=== PATIENT | female | born 1970 | race Caucasian/White ===

== ENCOUNTER 2017-03-27 18:50 | Emergency (ER) | payer BC ==
--- NOTE | 2017-03-27 20:37 | RAD ---
HISTORY: Right hand injury COMPARISONS: March 22, 2011 VIEWS: 4, Frontal, lateral, and oblique views of the right hand FINDINGS: BONE DENSITY: Normal. BONES: There is no acute displaced fracture. There is remote posttraumatic deformity to the fifth metacarpal, stable. JOINTS: There is no arthropathy. ALIGNMENT: There is no dislocation. SOFT TISSUES: Unremarkable. OTHER FINDINGS: None. IMPRESSION: NO ACUTE OSSEOUS INJURY. IF SYMPTOMS PERSIST, RECOMMEND REPEAT IMAGING.
--- NOTE | 2017-03-27 20:38 | RAD ---
HISTORY: Right hand injury COMPARISONS: Right hand dated March 27, 2017 VIEWS: 3, Frontal, lateral, and oblique views of the right wrist FINDINGS: BONE DENSITY: Normal. BONES: There is no displaced fracture. Again noted is remote posttraumatic change to the right fifth metacarpal. JOINTS: There is no arthropathy. ALIGNMENT: There is no dislocation. SOFT TISSUES: Unremarkable. OTHER FINDINGS: None. IMPRESSION: NO ACUTE OSSEOUS INJURY. IF SYMPTOMS PERSIST, RECOMMEND REPEAT IMAGING.
--- NOTE | 2017-03-27 20:48 | ED ---
Upper Extremity Pain - HPI Summary HPI Summary: 46F presents with right hand injury today s/p hitting as putting together lawn furniture. She states pain is greatest over 5th metacarpel. Has full ROM of wrist. States had previous fracture of 5th metacarpel. area of ecchymosis noted. has been placing ice on the area. - History of Current Complaint Chief Complaint: EDExtremityUpper Stated Complaint: RIGHT HAND INJURY Time Seen by Provider: 03/27/17 20:32 - Allergies/Home Medications Allergies/Adverse Reactions: Allergies Allergy/AdvReac Type Severity Reaction Status Date / Time Iodine Allergy Hives Verified 03/27/17 19:49 Penicillins [PCN] Allergy Unknown Verified 03/27/17 19:49 Reaction Details PMH/Surg Hx/FS Hx/Imm Hx Endocrine/Hematology History: Denies: Hx Diabetes Cardiovascular History: Denies: Hx Congestive Heart Failure, Hx Hypertension Psychiatric History: Reports: Hx Substance Abuse - Surgical History Surgery Procedure, Year, and Place: c section, oral ssusrgery Infectious Disease History: No Infectious Disease History: Denies: Traveled Outside the [place] in Last 30 Days - Family History Known Family History: Positive: Hypertension - Social History Alcohol Use: Daily Substance Use Type: Reports: None Smoking Status (MU): Heavy Every Day Tobacco Smoker Review of Systems Negative: Fever Negative: Chest Pain Negative: Shortness Of Breath Positive: Other - right hand pain All Other Systems Reviewed And Are Negative: Yes Physical Exam Triage Information Reviewed: Yes Vital Signs On Initial Exam: Initial Vitals Temp Pulse Resp BP Pulse Ox 97.1 F 79 17 143/96 100 03/27/17 18:54 03/27/17 18:54 03/27/17 18:54 03/27/17 18:54 03/27/17 18:54 Vital Signs Reviewed: Yes Appearance: Positive: Well-Appearing Skin: Positive: Warm, Dry Head/Face: Positive: Normal Head/Face Inspection Eyes: Positive: Normal, Conjunctiva Clear Respiratory/Lung Sounds: Positive: Clear to Auscultation, Breath Sounds Present Cardiovascular: Positive: Normal, RRR Musculoskeletal: Positive: Strength/ROM Intact - of right wrist, Limited @ - 5th metacarpel due to pain, Edema Right - 5th metacarpel with ecchymosis, Other - good pulse, capillary refill <2 secs, no step off, Diagnostics - Vital Signs Vital Signs Temp Pulse Resp BP Pulse Ox 03/27/17 19:46 98.1 F 80 14 154/99 100 03/27/17 18:54 97.1 F 79 17 143/96 100 - Laboratory Lab Statement: Any lab studies that have been ordered have been reviewed, and results considered in the medical decision making process. - Radiology hand, wrist Xray Interpretation: No Acute Changes - IMPRESSION: NO ACUTE OSSEOUS INJURY. IF SYMPTOMS PERSIST, RECOMMEND REPEAT IMAGING. Radiology Interpretation Completed By: Radiologist Course/Dx - Course Course Of Treatment: 46F presents with right hand injury s/p hitting it today. had previous injury there and broke it a couple years ago. ecchmyosis and edema noted of 5th metacarpel right hand. xray normal. told liekly contusion, patient understands and agrees with plan - Diagnoses Differential Diagnosis/HQI/PQRI: Positive: Fracture (Closed), Strain, Sprain Provider Diagnoses: Right hand pain Discharge - Discharge Plan Condition: Good Disposition: HOME Patient Education Materials: Hand Sprain (ED) Referrals: Adi Ray MD [Primary Care Provider] - Additional Instructions: Take Tylenol or ibuprofen every 6 hours as needed for pain Apply ice, rest, elevate Follow up with primary care physician within 7 days if no improvement Return to ED if develop numbness, tingling, inability to move joint, or any new or worsening symptoms
[2017-03-27 20:59] VITALS: BP 126/85
== END 2017-03-27 20:59 | disposition home or self-care (01) ==
LOC: ED 18:50
DX: M79.641 Pain in right hand (principal); F17.210 Nicotine dependence, cigarettes, uncomplicated; Z88.0 Allergy status to penicillin; Z88.8 Allergy status to other drugs, medicaments and biological substances
CPT/HCPCS: 99281